=== PATIENT | female | born 1995 | race Caucasian/White ===

== ENCOUNTER 2020-01-20 06:00 | Inpatient (IN) | payer OTHER ==
[2020-01-20] MEDS ORDERED: CARBOPROST TROMETHAMINE 250 MCG/ML 1 ML AMP IM PRN (06:21)
[2020-01-20] MEDS ORDERED: OXYTOCIN 10 UNIT/ML 1 ML VIAL IM PRN (06:21)
[2020-01-20] MEDS ORDERED: LIDOCAINE 0.5% (PF) 5 MG/ML (50 ML SDV) SQ PRN (06:21)
[2020-01-20] MEDS ORDERED: TERBUTALINE 1 MG/ML VIAL SQ PRN (06:21)
[2020-01-20] MEDS ORDERED: METHYLERGONOVINE 0.2 MG/ML 1 ML AMP IM PRN (06:21)
[2020-01-20] MEDS ORDERED: CLINDAMYCIN 900 MG in DEXTROSE 5% IN WATER 50 ML IVPB ONE ×2 (06:30)
[2020-01-20] MEDS ORDERED: OXYTOCIN 30 UNITS/500 ML NS 30 UNIT in SALINE 1 500ML.BAG IV SCH (06:30)
[2020-01-20] MEDS: LACTATED RINGERS 1,000 ML IV SCH ×2 (06:36→13:17)
[2020-01-20 06:43] LABS: Basophils % (A) 0 %; Eosinophils # (A) 0.1 k/uL (0-0.7); Eosinophils % (A) 1 %; HCT 35.2 % (34.0-46.0); HGB 11.5 gm/dL (11.4-16.0); Lymphocytes # (A) 1.2 k/uL (1.0-4.8); Lymphocytes % (A) 14 %; MCHC 32.7 g/dL (31.0-37.0); MCV 85.5 fL (80.0-100.0); Mean Platelet Volume 7.5; Monocytes # (A) 0.6 k/uL (0-1.0); Monocytes % (A) 7 %; Neutrophils # (A) 6.5 k/uL (1.3-7.7); Neutrophils % (A) 76 %; Platelet Count 213 k/uL (150-450); RBC 4.11 m/uL (3.80-5.40); RDW 15.9 % (11.5-15.5); WBC 8.6 k/uL (3.8-10.6)
[2020-01-20] MEDS ORDERED: BUTORPHANOL 1 MG/ML 1 ML VIAL IV PRN (08:21)
--- NOTE | 2020-01-20 08:26 | P.HPOB ---
History of Present Illness H&P Date: 01/20/20 Chief Complaint: IUP at 39 and 3/7 weeks This is a 24-year-old 6 para 1041 at 39-3/7 weeks that presents to labor and delivery for elective induction of labor. EDC of 01/23 based on last menstrual period consistent with ultrasound. Patient has been receiving routine care and has been essentially uncomplicated. Patient did transfer from [facility] [place] at approximately 20 weeks where she was receiving routine care in addition. Patient's prior history is Located by oligohydramnios with her last . Patient is known blood type of A+, rubella status immune, hepatitis B surface antigen negative, HIV negative, RPR nonreactive, GBS is positive. Patient notes good movement this morning. She notes an occasional contraction, denies loss of fluid or vaginal bleeding. Review of Systems Constitutional: Denies chills, Denies fatigue, Denies fever Ears, nose, mouth and throat: Denies headache Cardiovascular: Reports leg edema Respiratory: Denies dyspnea Gastrointestinal: Denies diarrhea, Denies nausea, Denies vomiting Genitourinary: Reports Past Medical History Past Medical History: Asthma History of Any Multi-Drug Resistant Organisms: None Reported Past Surgical History: No Surgical Hx Reported Past Anesthesia/Blood Transfusion Reactions: No Reported Reaction Past Psychological History: No Psychological Hx Reported Smoking Status: Never smoker Past Alcohol Use History: None Reported Past Drug Use History: None Reported - Past Family History Mother Additional Family Medical History / Comment(s): States her dad has Huddington's disease, pre-diabetic Father Family Medical History: Eye Disorder Additional Family Medical History / Comment(s): gluacoma Medications and Allergies Home Medications Medication Instructions Recorded Confirmed Type Pnv,Calcium 72/Iron/Folic Acid 1 tab PO DAILY 01/20/20 01/20/20 History [ Plus Tablet] Allergies Allergy/AdvReac Type Severity Reaction Status Date / Time amoxicillin Allergy Unknown Verified 01/20/20 06:20 Childhood Penicillins Allergy Unknown Verified 01/20/20 06:20 Childhood Exam Osteopathic Statement: *. No significant issues noted on an osteopathic structural exam other than those noted in the History and Physical/Consult. Vital Signs Temp Pulse Resp BP 01/20/20 06:19 97.2 F L 80 16 129/70 Intake and Output 01/19/20 01/20/20 01/20/20 22:59 06:59 14:59 Other: Weight 77.111 kg Targeted physical exam is performed on this date in general this a well- nourished well-developed female in no acute distress, breathing is noted to be nonlabored, heart has regular rate and rhythm, abdomen is gravid, on cervical exam she is 3/50/-2 station amniotomy is performed and clear fluid was obtained. heart tones are noted to be category 1 and she is marisol every 4 minutes. Results Result Diagrams: 01/20/20 06:25 Abnormal Lab Results - Last 24 Hours (Table) 01/20/20 Range/Units 06:25 RDW 15.9 H (11.5-15.5) % Assessment and Plan (1) Term Current Visit: Yes Status: Acute Code(s): Z34.90 - ENCNTR FOR SUPRVSN OF NORMAL , UNSP, UNSP TRIMESTER SNOMED Code(s): 03731787 (2) Positive GBS test Current Visit: Yes Status: Acute Code(s): B95.1 - STREPTOCOCCUS, GROUP B, CAUSING DISEASES CLASSD ELSR SNOMED Code(s): 976332031 Plan: Patient is admitted to labor and delivery and Pitocin induction of labor is begun per hospital protocol per patient request. IV antibiotics are begun given her group beta strep positive culture. Options for analgesia during labor discussed including Stadol and epidural. Patient will consider both. An ticipate spontaneous vaginal delivery later today.
[2020-01-20] MEDS: PRENATAL VIT-IRON-FOLIC ACID 1 EACH CAP PO SCH (13:20)
[2020-01-20] MEDS ORDERED: ROPIVACAINE 100 MG, fentaNYL (PF) 200 MCG in SODIUM CHLORIDE 0.9% 76 ML EPIDURAL ONE (13:23)
[2020-01-20] MEDS ORDERED: CLINDAMYCIN 900 MG in DEXTROSE 5% IN WATER 50 ML IVPB SCH ×2 (14:30)
[2020-01-20] MEDS ORDERED: HYDROcodone/APAP 5-325MG 1 EACH TAB PO PRN (16:05)
[2020-01-20] MEDS ORDERED: diphenhydrAMINE 25 MG CAP PO PRN (16:05)
[2020-01-20] MEDS ORDERED: diphenhydrAMINE 50 MG/ML 1 ML VIAL IVP PRN ×2 (16:05)
[2020-01-20] MEDS ORDERED: ACETAMINOPHEN TAB 325 MG TAB PO PRN (16:05)
[2020-01-20] MEDS ORDERED: LANOLIN CREAM 5 GM TUBE TOPICAL PRN (16:05)
[2020-01-20] MEDS ORDERED: HYDROCORTISONE 2.5% RECTAL CREAM 30 GM TUBE RECTAL PRN (16:05)
[2020-01-20] MEDS ORDERED: diphenhydrAMINE 50 MG CAP PO PRN (16:05)
[2020-01-20] MEDS ORDERED: BENZOCAINE/MENTHOL SPRAY 1 GM/SPRAY AEROSOL TOPICAL PRN (16:05)
[2020-01-20] MEDS ORDERED: SIMETHICONE 80 MG CHEWABLE PO PRN (16:05)
[2020-01-20] MEDS ORDERED: ZOLPIDEM 5 MG TAB PO PRN (16:05)
--- NOTE | 2020-01-20 16:08 | P.PROBDLV ---
Vaginal Delivery Note - . Vaginal Delivery Note: This is a pleasant 24-year-old 6 para 1041 that presented to labor and delivery at 39-3/7 weeks for planned induction of labor. Patient had been receiving care in [facility] and subsequently moved to [place]. Patient transferred care to [place] at 20 weeks. Patient's care with myself was routine and uncomplicated. Patient was positive for group beta strep. Patient was admitted to labor and delivery Pitocin induction of labor was begun per hospital protocol along with IV antibiotics. Patient underwent amniotomy clear fluid was obtained. Patient progressed through labor eventually becoming uncomfortable and did request epidural placement. Epidural was placed without difficulty by the anesthesia department. Patient progressed to complete began pushing and had a normal spontaneous vaginal delivery of a viable female infant at 1549, weight of 8 lbs. 4 oz. with Apgars of 9 and 10 at one and 5 minutes respectively. After two-minute delay the umbilical cord was doubly clamped and cut and the infant was handed off to the maternal abdomen. On inspection the patient's vaginal vault a secondary midline laceration was noted. This was repaired in the usual fashion. The placenta was delivered spontaneously intact with a three-vessel cord. Uterus is noted be firm and 2 finger breaths below the umbilicus. No further lacerations were noted in the vaginal vault after the placenta was delivered. Hemostasis was appreciated on the laceration that was repaired. Estimated blood loss noted to be 200 mL Patient and tolerated delivery well and are resting comfortably. All counts room to be correct 2 at the end of the delivery.
[2020-01-20] MEDS ORDERED: OXYTOCIN 20 UNITS/1000 ML NS 1,000 ML IV SCH (16:15)
[2020-01-20] MEDS: SENNOSIDES-DOCUSATE SODIUM 1 EACH TAB PO SCH (20:42)
[2020-01-20] MEDS: IBUPROFEN 600 MG TAB PO PRN (20:47)
[2020-01-21] MEDS: IBUPROFEN 600 MG TAB PO PRN ×3 (03:30→16:32)
[2020-01-21 08:07] VITALS: RESP 16
--- NOTE | 2020-01-21 08:17 | P.DS ---
Providers Date of admission: 01/20/20 06:10 Expected date of discharge: 01/21/20 Attending physician: Esther Mai Primary care physician: Stated None - Discharge Diagnosis(es) (1) Term Current Visit: Yes Status: Acute (2) Positive GBS test Current Visit: Yes Status: Acute (3) Status post vaginal delivery Current Visit: Yes Status: Acute Hospital Course: This is a 24-year-old 6 para 1041 at 39-3/7 weeks that presents to labor and delivery for elective induction of labor. Patient had been receiving routine care until 20 weeks and utero-ovarian subsequently transferred to the area. Patient has been receiving routine uncomplicated care with myself. Patient notes good movement upon admission, she was admitted and Pitocin induction of labor was begun. Amniotomy was performed and clear fluid was obtained. Patient regressed through labor eventually becoming uncomfortable and requesting epidural placement. Epidural was placed without difficulty. Patient is currently progressed to complete began pushing and had a normal spontaneous vaginal delivery of a viable female at 1549, weight of 8 lbs. 4 oz. with Apgars of 9 and 10 at one and 5 minutes respectively. After two-minute delayed the umbo cord was doubly clamped and cut. A second-degree midline laceration was noted and repaired in the usual fashion. Patient's post course is been uneventful. On this day #1 she is ambulating and voiding without difficulty. She is tolerating a regular diet without nausea or vomiting. She states her pain is well-controlled and she denies concerns. She does wish discharge home at 24 hours. Patient Condition at Discharge: Good Plan - Discharge Summary New Discharge Prescriptions: No Action Pnv,Calcium 72/Iron/Folic Acid [ Plus Tablet] 1 tab PO DAILY Discharge Medication List Pnv,Calcium 72/Iron/Folic Acid [ Plus Tablet] 1 tab PO DAILY 01/20/20 [History] Patient Instructions/Handouts: Vaginal Delivery (DC), Vaginal Delivery (GEN) Discharge Disposition: HOME SELF-CARE
[2020-01-21 08:58] VITALS: BP 133/74; PULSE 67; TEMP 98.2
[2020-01-21] MEDS: PRENATAL VIT-IRON-FOLIC ACID 1 EACH CAP PO SCH (09:06)
[2020-01-21] MEDS: SENNOSIDES-DOCUSATE SODIUM 1 EACH TAB PO SCH (09:30)
== END 2020-01-21 16:40 | disposition home or self-care (01) | DRG 807 ==
LOC: 4FBP 06:10
PROVIDERS: ADMIT Obstetrics & Gynecology Obstetrics; ATTEND Obstetrics & Gynecology Obstetrics
PROC: 0KQM0ZZ Repair Perineum Muscle, Open Approach (ICD-10-PCS; principal; 2020-01-20)
PROC: 10E0XZZ Delivery of Products of Conception, External Approach (ICD-10-PCS; principal; 2020-01-20)
PROC: 00HU33Z Insertion of Infusion Device into Spinal Canal, Percutaneous Approach (ICD-10-PCS; principal; 2020-01-20)
PROC: 3E033VJ Introduction of Other Hormone into Peripheral Vein, Percutaneous Approach (ICD-10-PCS; principal; 2020-01-20)
PROC: 3E0R3BZ Introduction of Anesthetic Agent into Spinal Canal, Percutaneous Approach (ICD-10-PCS; principal; 2020-01-20)
PROC: 10907ZC Drainage of Amniotic Fluid, Therapeutic from Products of Conception, Via Natural or Artificial Opening (ICD-10-PCS; principal; 2020-01-20)
DX: O99.824 Streptococcus B carrier state complicating childbirth (principal); Z37.0 Single live birth; O70.1 Second degree perineal laceration during delivery; Z3A.39 39 weeks gestation of pregnancy; Z88.0 Allergy status to penicillin; Z87.09 Personal history of other diseases of the respiratory system; Z83.511 Family history of glaucoma; Z84.89 Family history of other specified conditions
CPT/HCPCS: 85025; 86850; 86900; 86901